=== PATIENT | female | born 1995 | race Two or more races ===

== ENCOUNTER 2016-10-13 16:42 | Emergency (ER) | payer SELFPAY ==
[2015-09-22 08:08] VITALS: BP 123/74
== END 2016-10-13 17:15 | disposition left against medical advice (07) ==
LOC: ER 16:42
DX: H92.09 Otalgia, unspecified ear (principal); Z53.21 Procedure and treatment not carried out due to patient leaving prior to being seen by health care provider

== ENCOUNTER 2016-12-22 13:11 | Emergency (ER) | payer SELFPAY ==
[~2016-12-22] VITALS: Ht 160 cm; Wt 56.7 kg
[2016-12-22 13:23] VITALS: BP 103/64
[2016-12-22] MEDS ORDERED: CYCL10TA2 PO (13:48)
--- NOTE | 2016-12-22 13:48 | PHYS DOC ---
Past Medical History Past Medical History: No Pertinent History Past Surgical History: No Surgical History Alcohol Use: Occasionally Drug Use: None Adult General Chief Complaint Chief Complaint: SHOULDER INJURY [facility] HPI Patient is a 21 year old female presents emergency department stating that she has having left upper back pain and discomfort. She states the pain is around the shoulder blade. She states that whenever she turns her head to the right she has increased pain in the back area. She states she's been taken ibuprofen for the pain and discomfort with minimal relief. She denies any trauma or falls injuries to the shoulder. She does state that she's been lifting heavy boxes. She denies any numbness or tingling down into her hand. Peripheral pulses 2+ cap refill brisk less than 2 seconds. Review of Systems Review of Systems Constitutional: Denies fever or chills [] Eyes: Denies change in visual acuity, redness, or eye pain [] HENT: Denies nasal congestion or sore throat [] Respiratory: Denies cough or shortness of breath [] Cardiovascular: No additional information not addressed in HPI [] GI: Denies abdominal pain, nausea, vomiting, bloody stools or diarrhea [] : Denies dysuria or hematuria [] Musculoskeletal: Denies back pain. Complaint of left shoulder/upper back pain Integument: Denies rash or skin lesions [] Neurologic: Denies headache, focal weakness or sensory changes [] Allergies Allergies Allergies Coded Allergies Type Severity Reaction Last Updated Verified No Known Drug Allergies 02/24/14 No Physical Exam Physical Exam Constitutional: Well developed, well nourished, no acute distress, non-toxic appearance. [] HENT: Normocephalic, atraumatic, bilateral external ears normal, oropharynx moist, no oral exudates, nose normal. [] Eyes: PERRLA, EOMI, conjunctiva normal, no discharge. [] Neck: Normal range of motion, no tenderness, supple, no stridor. [] Cardiovascular:Heart rate regular rhythm, no murmur [] Lungs & Thorax: Bilateral breath sounds clear to auscultation [] Skin: Warm, dry, no erythema, no rash. [] Back: Left upper back tenderness Extremities: Left scapula tenderness, no cyanosis, no clubbing, ROM intact, no edema. Patient was noted to have full range of motion of the left shoulder although she does have increased pain with full extension of the arm above the head. Peripheral pulses are 2+ cap refill brisk less than 2 seconds. Patient with equal script reader bilaterally. Neurologic: Alert and oriented X 3, normal motor function, normal sensory function, no focal deficits noted. [] Psychologic: Affect normal, judgement normal, mood normal. [] Current Patient Data Vital Signs Vital Signs Date Time Temp Pulse Resp B/P Pulse Ox O2 Delivery O2 Flow Rate FiO2 12/22/16 13:23 98.1 72 16 98 Room Air 98.1 EKG EKG [] Radiology/Procedures Radiology/Procedures [] Course & Med Decision Making Course & Med Decision Making Pertinent Labs and Imaging studies reviewed. (See chart for details) Recommended for patient to continue to use ibuprofen 600-800 mg every 8 hours with food stop taking develop an upset stomach. Provide her with Flexeril to help with muscle spasms and pain. Patient was instructed this medication will cause drowsiness do not take any be alert and oriented. Patient agrees with discharge instructions treatment regimens and follow-up recommendations. Recommended patient to follow up with primary care physician in the next week if she continues to have pain and discomfort. So recommended ice packs on 20 minutes off 20 minutes several times a day. Patient agrees with discharge instructions treatment regimens and follow-up recommendations. [] Dragon Disclaimer Dragon Disclaimer This electronic medical record was generated, in whole or in part, using a voice recognition dictation system. Departure Departure Impression: Primary Impression: Upper back pain on left side Disposition: 01 HOME, SELF-CARE Condition: STABLE Referrals: NO PCP (PCP) Patient Instructions: Back Pain, Adult, [id number] Additional Instructions: Activity as tolerated. Ibuprofen 600-800 mg every 8 hours with food stop taking few develop an upset stomach. Flexeril will cause drowsiness do not take any be alert and oriented. Ice packs on 20 minutes off 20 minutes several times a day. Elevation as much as possible. Follow-up to primary care physician in the next 7-10 days. Return back to emergency prior signs symptoms become worse. Scripts Cyclobenzaprine Hcl 10 Mg [id number] Mg PO TID PRN MUSCLE SPASMS #30 TAB Prov:YOSELIN ANTONIO APRN 12/22/16 YOSELIN ANTONIO APRN Dec 22, 2016 13:48
== END 2016-12-22 14:03 | disposition home or self-care (01) ==
LOC: ER 13:11
DX: M54.6 Pain in thoracic spine (principal); M25.512 Pain in left shoulder
CPT/HCPCS: 99283